=== PATIENT | female | born 1980 | race American Indian/Alaskan Native ===

== ENCOUNTER 2016-12-28 17:34 | Emergency (ER) | payer BC ==
[2016-12-28 17:53] VITALS: BMI 38.2
[2016-12-28 17:58] VITALS: TEMP 98.5
[2016-12-28] MEDS ORDERED: Sodium Chloride 0.9% 1,000 ML IV STA (18:25)
--- NOTE | 2016-12-28 18:53 | ED PDOC ---
Arrival/HPI - General Chief Complaint: Lower Extremity Problem/Injury Time Seen by Provider: 12/28/16 18:02 Historian: Patient - History of Present Illness Narrative History of Present Illness (Text): 12/28/16 18:53 A 36 year old female, 35 weeks , LMP on 04/28/16, presents to the emergency department complaining of a dry cough, sore throat and URI symptoms. Patient also notes right lower back pain radiating to right lower extremity. She notes bilateral lower extremity swelling for the past three days, which has gone down this morning. Reports abdomen feels full, cramping and an intermittent pressure sensation. Patient denies any chest pain, shortness of breath, dysuria or any other complaints at this time. OBGYN: Dr. Julio Zendejas ([facility]) Symptom Onset: Sudden Symptom Course: Unchanged Activities at Onset: Rest Context: Home Past Medical History - Provider Review Nursing Documentation Reviewed: Yes - Infectious Disease Hx of Infectious Diseases: None - Psychiatric Hx Substance Use: No - Surgical History Other/Comment: D&C with fibroid removal. - Anesthesia Hx Anesthesia: Yes Hx Anesthesia Reactions: No Family/Social History - Physician Review Nursing Documentation Reviewed: Yes Family/Social History: No Known Family HX Smoking Status: Never Smoked Hx Alcohol Use: No Hx Substance Use: No Allergies/Home Meds Allergies/Adverse Reactions: Allergies No Known Allergies Allergy (Verified 12/28/16 17:53) Home Medications: Home Meds Medication Instructions Recorded Confirmed Vit 75/Iron/Folic/Om3 1 tab PO DAILY 12/28/16 12/28/16 [One A Day Dha Pack] Review of Systems - Physician Review All systems were reviewed & negative as marked: Yes Physical Exam - Physical Exam Narrative Physical Exam (Text): 12/28/16 18:50- Review of Systems Constitutional: Normal. absent: Fatigue, Weight Change, Fevers Eyes: Normal ENT: sore throat, URI symptoms Respiratory: cough absent: SOB, Sputum Cardiovascular: Normal absent: Chest pain, Palpitations, Syncope Gastrointestinal: abdominal cramping and pressure sensation absent: Diarrhea, Nausea, Vomiting Genitourinary: Normal. absent: Dysuria, Frequency, Hematuria Musculoskeletal: right lower back pain radiating to right lower extremity absent : Arthralgias, Neck Pain Skin: bilateral lower extremity swelling Neurological: Normal absent: Focal Weakness Endocrine: Normal Hemo/Lymphatic: Normal Psychiatric: Normal - Physical exam Patient appears age appropriate, speaking full sentences without difficulty - Systems Exam Head: Present: Atraumatic, Normocephalic Pupils: Present: PERRL Extraocular Muscles: Present: EOMI Conjunctiva: Present: Normal Mouth: Present: Moist Mucous Membranes Neck: Present: Normal Range of Motion. No: MIDLINE TENDERNESS, Paraspinal Tenderness Respiratory/Chest: Present: Clear to Auscultation, Good Air Exchange. No: Respiratory Distress, Accessory Muscle Use, Tachypnic Cardiovascular: Present: tachycardic, Peripheral Pulses Present. No: Murmurs Abdomen: Present: Normal Bowel Sounds, No: Tenderness, Peritoneal Signs, Rebound, Guarding, Distention Back: Present: Normal Inspection. No: Midline Tenderness, Paraspinal Tenderness Upper Extremity: Present: Normal Inspection. No: Cyanosis, Edema Lower Extremity: Present: Normal Inspection. No: Edema Neurological: Present: GCS=15, Speech Normal, cranial nerves II through XII fully intact with no cerebellar abnormality, neuro-sensory fully intact. No focal neurological deficits. Skin: Present: Warm, Dry, Normal Color. No: Rashes Lymphatic: Present: OX3, NI, NC Psychiatric: Present: Alert, Oriented x 3, Normal Insight, Normal Concentration Vital Signs Reviewed: Yes Vital Signs Temp Pulse Resp BP Pulse Ox 12/28/16 19:31 102 H 18 121/70 98 12/28/16 17:56 98.5 F 114 H 19 122/77 98 Temperature: Afebrile Blood Pressure: Normal Pulse: Tachycardic Respiratory Rate: Normal Appearance: Positive for: Well-Appearing, Non-Toxic, Comfortable Pain Distress: None Mental Status: Positive for: Alert and Oriented X 3 Medical Decision Making ED Course and Treatment: 12/28/16 18:49 Impression: A 36 year old female, 35 weeks , with sore throat, cough and right lower back pain radiating to right lower extremity. Pt also states she had a mechanical fall earlier today onto her buttock, and now c/o abd pain, cramping. on bedside UA, pt's baby moving, HR 145, vertex [place] ED scribe present during examination, cervix closed, no effacement, no fluid Differential Diagnosis included but are not limited to: fall, dehydration Plan: -- labs -- Urinalysis -- IV fluids, Tylenol -- Reassess and disposition Progress Notes: 12/28/16 19:[address] Julio Knapp, asked to call L&D at [facility] Dr. Woo, resident. States to transfer pt, Dr. Styles is accepting. pt in no distress, aware of and agrees with plan pt has no abd pain at this time, denies cramping - Lab Interpretations Lab Results: 12/28/16 19:13 Lab Results 12/28/16 19:13: WBC 6.5, RBC 3.81, Hgb 10.9 L, Hct 33.3 L, MCV 87.4, MCH 28.6, MCHC 32.7, RDW 14.7 H, Plt Count 233, MPV 9.3, Gran % 70.0 H, Lymph % (Auto) 19.7 L, Hill % (Auto) 8.1 H, Eos % (Auto) 2.0, Baso % (Auto) 0.2, Gran # 4.52, Lymph # 1.3, Hill # 0.5, Eos # 0.1, Baso # 0.01 I have reviewed the lab results: Yes - Medication Orders Current Medication Orders: Discontinued Medications Acetaminophen (Tylenol 325mg Tab) 975 mg PO STAT STA Stop: 12/28/16 18:26 Last Admin: 12/28/16 19:03 Dose: 975 mg Sodium Chloride (Sodium Chloride 0.9%) 1,000 mls @ 1,000 mls/hr IV .Q1H STA Stop: 12/28/16 19:24 Last Admin: 12/28/16 19:03 Dose: 1,000 mls/hr - Scribe Statement The provider has reviewed the documentation as recorded by the Lyndon James Provider Scribe Attestation: All medical record entries made by the Scribe were at my direction and personally dictated by me. I have reviewed the chart and agree that the record accurately reflects my personal performance of the history, physical exam, medical decision making, and the department course for this patient. I have also personally directed, reviewed, and agree with the discharge instructions and disposition. Disposition/Present on Arrival - Present on Arrival Any Indicators Present on Arrival: No History of DVT/PE: No History of Uncontrolled Diabetes: No Urinary Catheter: No History of Decub. Ulcer: No History Surgical Site Infection Following: None - Disposition Have Diagnosis and Disposition been Completed?: Yes Diagnosis: Abdominal pain affecting Disposition: OTHER INSTITUTION Disposition Time: 19:51 Patient Plan: Transfer To ([facility]) Condition: STABLE Referrals: PCP,NO [Primary Care Provider] - Follow up with primary
[2016-12-28 19:33] LABS: BASO # 0.01 K/mm3 (0.0-2.0); BASO % 0.2 % (0.0-3.0); EOS # 0.1 (0.0-0.7); GRAN # 4.52 (1.4-6.5); HEMOGLOBIN 10.9 gm/dL (12.0-16.0); LYMPH # 1.3 (1.2-3.4); LYMPH % 19.7 % (22.0-35.0); MEAN CELL VOLUME 87.4 fL (80.0-105.0); MEAN CORPUSCULAR HEMOGLOBIN 28.6 pg (25.0-35.0); MEAN CORPUSCULAR HGB CONC 32.7 g/dl (31.0-37.0); MEAN PLATELET VOLUME 9.3 fl (7.0-11.0); MONO # 0.5 (0.1-0.6); MONO % 8.1 % (1.0-6.0); PLATELET COUNT 233 10^3/uL (120.0-450.0); RBC 3.81 10^6/uL (3.5-6.1); RED CELL DISTRIBUTION WIDTH 14.7 % (11.5-14.5); WHITE BLOOD COUNT 6.5 10^3/ul (4.5-11.0)
[2016-12-28 19:39] LABS: INR 1.08 (0.93-1.08); PARTIAL THROMBOPLASTIN TIME 27.9 Seconds (23.7-30.8); PROTHROMBIN TIME 11.7 Seconds (9.9-11.8)
[2016-12-28 19:49] LABS: ALB/GLOB RATIO 0.9 (1.1-1.8); ALBUMIN 3.3 g/dL (3.0-4.8); ALT/SGPT 24 U/L (7-56); AST/SGOT 29 U/L (15-39); BLOOD UREA NITROGEN 5 mg/dL (7-21); GFR AFRICAN-AMERICAN > 60; GFR NON-AFRICAN AMERICAN > 60
[2016-12-28 20:17] LABS: URINE BILIRUBIN NEGATIVE (NEGATIVE); URINE BLOOD NEGATIVE (NEGATIVE); URINE GLUCOSE (UA) >=1000 mg/dL (NEGATIVE); URINE LEUKOCYTE ESTERASE NEGATIVE Leu/uL (NEGATIVE); URINE NITRATE NEGATIVE (NEGATIVE); URINE PROTEIN NEGATIVE mg/dL (<30 mg/dL)
[2016-12-28] MEDS ORDERED: Potassium Chloride 20 mEq ER Tab PO STA (20:17)
[2016-12-28 20:33] VITALS: BP 116/71; PULSE 99; RESP 20; O2SAT 100
[2016-12-28 20:33] LABS: URINE APPEARANCE CLEAR (CLEAR); URINE COLOR YELLOW (YELLOW)
== END 2016-12-28 22:40 | disposition designated cancer center or children's hospital (05) ==
LOC: ED 17:34
DX: O26.893 Other specified pregnancy related conditions, third trimester (principal); R10.9 Unspecified abdominal pain; Z3A.35 35 weeks gestation of pregnancy
CPT/HCPCS: 80053; 81003; 85025; 85610; 85730; 86850; 86900; 99284; J7040